=== PATIENT | female | born 1990 | race Caucasian/White ===

== ENCOUNTER 2021-01-22 12:47 | Outpatient (CLI) | payer OTHER | END 2021-01-22 23:59 | disposition home or self-care (01) | LOC: WOUND 12:47 | PROVIDERS: ATTEND Internal Medicine Cardiovascular Disease | DX: Z02.9 Encounter for administrative examinations, unspecified (principal) ==

== ENCOUNTER 2021-01-22 14:08 | Outpatient (CLI) | payer OTHER | END 2021-01-22 23:59 | disposition home or self-care (01) | LOC: WOUND 14:08 | PROVIDERS: ATTEND Internal Medicine Cardiovascular Disease | DX: Z02.9 Encounter for administrative examinations, unspecified (principal) ==